=== PATIENT | female | born 1980 | race Caucasian/White ===

== ENCOUNTER 2022-02-19 10:53 | Emergency (ER) | payer OTHER ==
[~2022-02-19] VITALS: Ht 157.5 cm; Wt 60.0 kg
[2022-02-19 11:20] VITALS: BP 130/73
[2022-02-19] MEDS ORDERED: OFLO5DRO4 LEFT EAR (12:32)
== END 2022-02-19 12:50 | disposition home or self-care (01) ==
LOC: ER 10:53
DX: H72.92 Unspecified perforation of tympanic membrane, left ear (principal); Z87.730 Personal history of (corrected) cleft lip and palate; Z88.5 Allergy status to narcotic agent
CPT/HCPCS: 99283